=== PATIENT | female | born 1955 | race Caucasian/White ===

== ENCOUNTER 2019-07-07 20:00 | Emergency (ER) | payer MEDICARE, MEDICAID ==
[~2019-07-07] VITALS: Ht 162.6 cm; Wt 84.4 kg
[2019-07-08 04:15] VITALS: BP 107/59
== END 2019-07-08 04:10 | disposition home or self-care (01) ==
LOC: ER 20:02
DX: H21.02 Hyphema, left eye (principal); Z88.8 Allergy status to other drugs, medicaments and biological substances
CPT/HCPCS: 70450

== ENCOUNTER 2023-10-23 22:06 | Emergency (ER) | payer MEDICARE, MEDICAID ==
[~2023-10-23] VITALS: Ht 175.3 cm; Wt 81.8 kg
[2023-10-23 22:10] VITALS: BP 122/79; PULSE 65; RESP 18; O2SAT 100
== END 2023-10-24 00:05 | disposition home or self-care (01) ==
LOC: ER 22:06 → EDBD 22:06 → ER 10-24 00:05
DX: R19.7 Diarrhea, unspecified (principal); R53.1 Weakness; I10 Essential (primary) hypertension; E78.5 Hyperlipidemia, unspecified; Z88.8 Allergy status to other drugs, medicaments and biological substances
CPT/HCPCS: 93005

== ENCOUNTER 2024-05-03 06:50 | Inpatient (IN) | payer MEDICARE, MEDICAID ==
[~2024-05-03] VITALS: Ht 175.3 cm; Wt 81.0 kg
[2024-05-03] MEDS: SODIUM CHLORIDE 0.9% 500 ML IV ONE (07:30)
[2024-05-03] MEDS: DexAMETHasone SOD PHOS 10MG/1ML VIAL INJ IV ONE (07:53)
[2024-05-03 08:15] VITALS: PULSE 74; RESP 12; O2SAT 98
[2024-05-03 08:29] LABS: Basophils # (auto) 0.1 10 ^3/uL (0-0.2); Basophils % (auto) 0.7 % (0.0-2.0); Eosinophils # (auto) 0 10 ^3/uL (0-0.8); Eosinophils % (auto) 0.6 % (0.0-7.0); Hematocrit 41.5 % (36.0-46.0); Hemoglobin 14.3 g/dL (12.2-16.2); Lymphocytes # (auto) 1.2 10 ^3/uL (0.4-5.4); Lymphocytes % (auto) 16.2 % (10.0-50.0); Mean Corpuscular Hgb Conc. 34.4 g/dL (32.0-36.0); Monocytes # (auto) 0.5 10 ^3/uL (0-1.3); Monocytes % (auto) 7.1 % (0.0-12.0); Neutrophils # (auto) 5.7 10 ^3/uL (1.6-8.6); Neutrophils % (auto) 75.4 % (37.0-80.0); Red Blood Cells 4.46 10^6/uL (4.0-5.20); Red Cell Distribution Width 13.4 % (11.8-14.3); White Blood Cell 7.6 10^3/uL (4.4-10.8)
[2024-05-03 08:38] LABS: Alanine Aminotransferase 16 U/L (7-40); Albumin 4.5 g/dL (3.2-4.8); Alkaline Phosphatase 98 U/L (46-116); Anion Gap 11 (5-15); Aspartate Aminotransferase 12 U/L (13-40); BUN/Creatinine Ratio 12.8 (10.0-20.0); Blood Urea Nitrogen 10 mg/dL (9-23); Calcium 10.2 mg/dL (8.7-10.4); Carbon Dioxide 23 mmol/L (20-30); Chloride 108 mmol/L (98-107); Glucose 100 mg/dL (74-106); Magnesium 2.1 mg/dL (1.6-2.6); Potassium 3.5 mmol/L (3.5-5.1); Sodium 142 mmol/L (136-145)
[2024-05-03 08:39] LABS: Bilirubin, Total 0.4 mg/dL (0.2-1.0); Total Protein 6.6 g/dL (5.7-8.2)
[2024-05-03] MEDS: SODIUM CHLORIDE 0.9% 1,000 ML IV ONE (09:00)
[2024-05-03 09:03] LABS: Urine Bacteria FEW /hpf (None Seen); Urine Blood Negative /uL (Negative); Urine Clarity Clear (Clear); Urine Color Light-Yellow (Yellow); Urine Protein, UAD Negative (Negative); Urine Specific Gravity 1.004 (1.001-1.035); Urine Urobilinogen Normal (Negative); Urine WBC 1 /hpf (0 - 5); Urine pH 7.5 (5.0-9.0)
[2024-05-03 12:00] VITALS: TEMP 98.1
[2024-05-03 12:45] VITALS: BP 133/62; PULSE 73; RESP 11; O2SAT 96
[2024-05-03] MEDS ORDERED: NITROGLYCERIN 0.4 MG SL TAB SL PRN (12:45)
== END 2024-05-03 12:56 | disposition left against medical advice (07) | DRG 59 ==
LOC: ER 06:50 → EDBD 06:50 → OVERFLOW 12:37
PROVIDERS: ADMIT Nurse Practitioner Family; ATTEND Nurse Practitioner Family
DX: G35 Multiple sclerosis (principal); N30.00 Acute cystitis without hematuria; Z53.29 Procedure and treatment not carried out because of patient's decision for other reasons; I10 Essential (primary) hypertension; E78.5 Hyperlipidemia, unspecified; Z90.710 Acquired absence of both cervix and uterus; Z79.899 Other long term (current) drug therapy
CPT/HCPCS: 36415; 71045; 80053; 81001; 83735; 85025; 93005; 96361; 96374; G0378; J1100